=== PATIENT | female | born 1960 | race Caucasian/White ===

== ENCOUNTER 2023-01-17 15:32 | Emergency (ER) | payer SELFPAY ==
--- NOTE | ~2023-01-17 | XR_ITS ---
EXAMINATION: XR hand LT min 3V DATE: 01/17/2023 16:03 INDICATION: Left hand pain. Fall. TECHNIQUE: 3 views of left hand were obtained. COMPARISON: None. FINDINGS: Bone alignment is normal. No fracture. There is mild osteoarthritis of first carpometacarpa l joint and some of the interphalangeal joints. There is moderate osteoarthritis of second, third, an d fourth distal interphalangeal joints and second proximal interphalangeal joint. IMPRESSION: 1. Polyarticular osteoarthritis. Reviewed, dictated and finalized at location E.
--- NOTE | ~2023-01-17 | XR_ITS ---
EXAMINATION: XR wrist LT min 3V DATE: 01/17/2023 16:03 INDICATION: Left wrist pain. Fall. TECHNIQUE: 4 views of left wrist were obtained. COMPARISON: None. FINDINGS: Bone alignment is normal. No fracture. There is mild osteoarthritis of first carpometacarpa l joint and distal radioulnar joint. IMPRESSION: 1. Mild polyarticular osteoarthritis. Reviewed, dictated and finalized at location E.
[2023-01-17 15:41] VITALS: BP 129/56; PULSE 68; RESP 16; TEMP 36.4; O2SAT 100
--- NOTE | 2023-01-17 15:42 | ED.UPPEXIN ---
HPI - Extremity Injury (Upper) General Chief Complaint: Extremity Injury, Upper Stated Complaint: Fall Injury/Left Hand Source: patient and RN notes reviewed History of Present Illness HPI narrative: 62 yo F presents to urgent care with complaints of left hand and wrist pain. Pt states on , she tripped over a broken piece of asphalt at [employer] and fell onto her hands, mainly her left. Pt reports a couple of abrasions to her right hand, right knee, and right toe which are all improving but her left wrist and hand have not improved. 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 Denies any head injury, neck pain, LOC, chest pain, SOB, or vomiting. Pt has taken her Vicodin at home with minimal relief. Related Data Home Medications Medication Instructions Recorded Confirmed amlodipine 5 mg tablet mg 01/17/23 carvedilol 25 mg tablet mg 01/17/23 cyclobenzaprine 10 mg tablet mg 01/17/23 hydrocodone 5 mg-acetaminophen 325 tablet 01/17/23 mg tablet meclizine 25 mg tablet mg 01/17/23 meloxicam 7.5 mg tablet mg 01/17/23 omeprazole 20 mg capsule,delayed mg 01/17/23 release zolpidem 10 mg tablet mg 01/17/23 Allergies Allergy/AdvReac Type Severity Reaction Status Date / Time Penicillins Allergy Rash Verified 01/17/23 15:53 Review of Systems Review of Systems: CONSTITUTIONAL: Denies fever, chills, or sweats. EYES: Denies visual changes, redness, or discharge. ENT: Denies otalgia and sore throat CARDIOVASCULAR: Denies chest pain, palpitations, or edema. RESPIRATORY: Denies cough or dyspnea. GASTROINTESTINAL: Denies abdominal pain, nausea, vomiting, or diarrhea. GENITOURINARY: Denies dysuria or hematuria. SKIN: Denies rash or itching. MUSCULOSKELETAL: Right hand and wrist pain NEUROLOGIC: Denies headache, numbness, or weakness. Pertinent positives per HPI. PMFSH Comments At the time of my signature, I reviewed and agree with the nursing past medical, surgical, social, and family history. There is no relevant family history pertinent to the patient complaint. Exam Narrative: GENERAL: This is a well-nourished, well-developed patient, in no apparent distress. HEAD: normocephalic, atraumatic. EYES: Sclera clear/white. Vision is grossly intact. EARS: External ears normal, auditory canals clear and without drainage. Hearing grossly intact. NOSE: External nose normal with no obvious nasal discharge, nares without redness, no rhinorrhea. THROAT: Mucous membranes moist, posterior pharynx clear. NECK: Neck supple, non-tender without lymphadenopathy, masses or thyromegaly. CARDIOVASCULAR: Regular rate and rhythm without murmurs, gallops, or rubs. RESPIRATORY: Clear to auscultation. Breath sounds equal bilaterally. No wheezes, rales, or rhonchi. GASTROINTESTINAL: Abdomen soft, non-tender, nondistended. Bowel sounds are active. No hepato-splenomegaly, or palpable masses. No guarding. SKIN: warm, intact with no suspicious lesions or rash, good texture and turgor. NEURO: awake, alert, and oriented to person, place and time. There were no obvious focal neurologic abnormalities. EXTREMITIES:Tenderness to left radial and ulnar wrist along with 5th metacarpal of hand. BACK: Nontender without deformity or crepitus. No flank tenderness. Course Course Level of Care: Express Care Visit Vital Signs Vital signs: Vital Signs Temperature 97.5 F L 01/17/23 15:41 Pulse Rate 68 01/17/23 15:41 Respiratory Rate 16 01/17/23 15:41 Blood Pressure 129/56 L 01/17/23 15:41 Pulse Oximetry 100 01/17/23 15:41 Oxygen Delivery Room Air 01/17/23 15:41 Temperature 97.5 F L 01/17/23 15:41 Pulse Rate 68 01/17/23 15:41 Respiratory Rate 16 01/17/23 15:41 Blood Pressure 129/56 L 01/17/23 15:41 Pulse Oximetry 100 01/17/23 15:41 Oxygen Delivery Room Air 01/17/23 15:41 reviewed MDM - Extremity Injury (Upper) MDM Narrative
== END 2023-01-17 16:42 | disposition home or self-care (01) ==
PROVIDERS: Emergency Provider Nurse Practitioner Family; PCP Internal Medicine
DX: S63.502A Unspecified sprain of left wrist, initial encounter (principal); S66.912A Strain of unspecified muscle, fascia and tendon at wrist and hand level, left hand, initial encounter; W18.09XA Striking against other object with subsequent fall, initial encounter; E78.00 Pure hypercholesterolemia, unspecified; I10 Essential (primary) hypertension
CPT/HCPCS: 73110; 73130; 99213; G0463

== ENCOUNTER 2023-01-26 13:03 | Emergency (ER) | payer SELFPAY ==
[2023-01-26 13:53] VITALS: BP 181/90; PULSE 78; RESP 18; TEMP 37; O2SAT 98
--- NOTE | 2023-01-26 15:13 | ED.GENADULT ---
HPI - General Adult General Chief complaint: Extremity Injury, Lower Stated complaint: Laceration to Left Big Toe Source: patient Mode of arrival: ambulatory Limitations: no limitations History of Present Illness HPI narrative: Patient presents for evaluation of a puncture wound to the left great toe. Last night she was at [facility] when a piece of plastic that holds advertising in the stool fell and hit her in the left great toe. She noted some bleeding at that time. Which has considerably improved. She does take meloxicam and aspirin daily. Not anticoagulated. Denies significant pain in the affected digit. Her primary care provider encouraged her to come in for a tetanus shot. She does not feel imaging is needed. She is leaving for a trip to [place] tomorrow. She is not diabetic. She has applied hydrogen peroxide to the afftected area. Related Data Home Medications Medication Instructions Recorded Confirmed carvedilol 25 mg tablet 12.5 mg PO BID 01/17/23 01/26/23 cyclobenzaprine 10 mg tablet 10 mg PO DAILY 01/17/23 01/26/23 meloxicam 7.5 mg tablet 7.5 mg PO DAILY PRN Pain 01/17/23 01/26/23 zolpidem 10 mg tablet 10 mg PO HS 01/17/23 01/26/23 aspirin 81 mg chewable tablet 81 mg PO DAILY 01/26/23 01/26/23 furosemide 40 mg tablet 40 mg PO BID 01/26/23 01/26/23 Allergies Allergy/AdvReac Type Severity Reaction Status Date / Time Penicillins Allergy Rash Verified 01/26/23 14:09 Review of Systems Review of Systems: CONSTITUTIONAL: Denies fever, chills, or sweats. EYES: Denies visual changes, redness, or discharge. ENT: Denies rhinorrhea, congestion, sore throat, or otalgia. CARDIOVASCULAR: Denies chest pain, palpitations, or edema. RESPIRATORY: Denies cough or dyspnea. GASTROINTESTINAL: Denies abdominal pain, nausea, vomiting, or diarrhea. GENITOURINARY: Denies dysuria or hematuria. SKIN: Reports a puncture wound to the left great toe. MUSCULOSKELETAL: Denies back pain, joint pain, or myalgia. NEUROLOGIC: Denies headache, numbness, dizziness, or weakness. PSYCHIATRIC: Denies anxiety or depression. [facility] Past Medical History Medical History Hypertension Obesity Surgical History Surgical History No pertinent past surgical history Family History Family History Mother Family history non-contributory Social History Social History Substance use: never Gender identity (if verbalized by the patient): Female Spiritual care concerns: No Exam Narrative: GENERAL: Well-appearing, well-nourished, and in no acute distress. HEAD: Normocephalic, atraumatic. EYES: PERRLA and EOMI. ENT: Nares clear, no rhinorrhea or epistaxis. Mucous membranes moist. Oropharynx without tonsillar hypertrophy exudate or other lesions. Bilateral TMs pearly darden nonbulging NECK: Supple. No adenopathy or masses. No carotid bruits or JVD CHEST: Clear to auscultation. No respiratory distress. No wheezes rales or rhonchi HEART: Regular rate and rhythm. No murmur heard. Normal peripheral pulses. ABDOMEN: Soft, nontender, nondistended, normal active bowel sounds. EXTREMITIES: Normal range of motion. No edema. SKIN: There is a 2 mm puncture wound to the left great toe with dried sanguinous drainage present. Skin is warm, dry, no rash. NEURO: No focal deficits. Alert and oriented x3. PSYCH: Normal mood and affect. Course Course Emergency Course: This is a 62-year-old female who presented for evaluation of a puncture wound to left great toe. She declined imaging. Tetanus was updated. There is no evidence of infection on exam but she is leaving town for trip to [place] tomorrow. She would like to have antibiotics on hand in the event that she does developed a cellulitis. She has tolerate
[2023-01-26] MEDS: TETANUS,DIPHTHERIA,AC PERTUSSIS ADULT (0.5 ML) BOOSTRIX IM (15:14)
== END 2023-01-26 15:38 | disposition home or self-care (01) ==
PROVIDERS: Emergency Provider Nurse Practitioner; PCP Internal Medicine
DX: S91.132A Puncture wound without foreign body of left great toe without damage to nail, initial encounter (principal); W20.8XXA Other cause of strike by thrown, projected or falling object, initial encounter; I10 Essential (primary) hypertension; E66.9 Obesity, unspecified; Z68.43 Body mass index [BMI] 50.0-59.9, adult; Z23 Encounter for immunization; Z79.82 Long term (current) use of aspirin
CPT/HCPCS: 90471; 90715; 99213; G0463

== ENCOUNTER 2023-05-22 13:28 | Emergency (ER) | payer OTHER, SELFPAY ==
--- NOTE | ~2023-05-22 | XR_ITS ---
EXAMINATION: XR toe 1st LT min 2V DATE: 05/22/2023 14:04 INDICATION: Left great toe pain. Injury. TECHNIQUE: 4 views of left great toe were obtained. COMPARISON: None. FINDINGS: Bone alignment is normal. No fracture. There is mild osteoarthritis of first metatarsophala ngeal joint and first interphalangeal joint. IMPRESSION: 1. Polyarticular osteoarthritis. Reviewed, dictated and finalized at location A. [employer]
--- NOTE | 2023-05-22 13:38 | ED.GENADULT ---
HPI - General Adult General Chief complaint: Extremity Injury, Lower Stated complaint: left foot big toe injury Source: patient, RN notes reviewed and old records reviewed Mode of arrival: ambulatory Limitations: no limitations History of Present Illness HPI narrative: 62[facility] in left great toe this started yesterday, after stubbing toe on shower chair. Patient states has tried ice elevate without relief. MD complaint: Toe pain Onset (ago): day(s) (1) Related Data Home Medications Medication Instructions Recorded Confirmed carvedilol 25 mg tablet 12.5 mg PO BID 01/17/23 01/26/23 cyclobenzaprine 10 mg tablet 10 mg PO DAILY 01/17/23 01/26/23 meloxicam 7.5 mg tablet 7.5 mg PO DAILY PRN Pain 01/17/23 01/26/23 zolpidem 10 mg tablet 10 mg PO HS 01/17/23 01/26/23 aspirin 81 mg chewable tablet 81 mg PO DAILY 01/26/23 01/26/23 furosemide 40 mg tablet 40 mg PO BID 01/26/23 01/26/23 hydrocodone 5 mg-acetaminophen 325 tablet 05/22/23 mg tablet Allergies Allergy/AdvReac Type Severity Reaction Status Date / Time Penicillins Allergy Rash Verified 05/22/23 13:31 Review of Systems Constitutional: Constitutional: Reports no additional constitutional complaints, Denies body ache(s), Denies chills, Denies fatigue, Denies fever(s) and Denies headache(s) Eyes: Eyes: Reports no additional eye complaints and Denies blurry vision ENT: Reports system reviewed and no additional complaints, except as documented, Denies vertigo, Denies dizziness, Denies ear discharge, Denies otalgia, Denies facial pain, Denies headache(s), Denies nasal congestion, Denies nasal discharge, Denies sinus pain, Denies sinus pressure and Denies sore throat Cardiovascular: Cardiovascular: Reports no additional cardiovascular complaints, Denies chest pain, Denies chest pain at rest, Denies rapid heart rate and Denies dyspnea Respiratory: Respiratory: Reports no additional respiratory complaints, Denies chest congestion, Denies cough, Denies pain on inspiration, Denies pain with cough and Denies dyspnea Gastrointestinal: Gastrointestinal: Denies abdominal pain, Denies diarrhea, Denies nausea and Denies vomiting Musculoskeletal: Comments: left great toe pain Integumentary/Breasts: Skin/Breast: Denies rash Neurologic: Reports system reviewed and no additional complaints, except as documented, Denies vertigo, Denies dizziness and Denies headache(s) Endocrine: Endocrine: Denies fatigue PMFSH Past Medical History Medical History Hypertension Obesity Surgical History Surgical History No pertinent past surgical history Family History Family History Mother Family history non-contributory Social History Social History Substance use: never Gender identity (if verbalized by the patient): Female Spiritual care concerns: No Comments At the time of my signature, I reviewed and agree with the nursing past medical, surgical, social, and family history. There is no relevant family history pertinent to the patient complaint. Exam Const: General: cooperative, healthy appearing, no acute distress and well nourished Nutritional Appearance: well nourished Orientation/consciousness: patient oriented x3 Limitations: no limitations HENMT: Head: normal to inspection and normocephalic Ears: external ears normal, TM's normal bilaterally, mastoids normal and Abnormal EAC present Face/Nose/Sinus: normal facial exam Face and sinus: normal facial exam Mouth: Yes Normal oral and palatal mucosa present, Yes oropharynx normal and Yes moist mucous membranes Throat: tonsils normal, uvula midline and no uvular edema Eyes: General: appearance normal, both eyes and all related structures Scle
[2023-05-22 13:43] VITALS: BP 119/67; PULSE 73; RESP 16; TEMP 36.7; O2SAT 96
== END 2023-05-22 14:30 | disposition home or self-care (01) ==
PROVIDERS: Emergency Provider Registered Nurse; PCP Internal Medicine
DX: S90.112A Contusion of left great toe without damage to nail, initial encounter (principal); I10 Essential (primary) hypertension; Z79.891 Long term (current) use of opiate analgesic; W22.8XXA Striking against or struck by other objects, initial encounter
CPT/HCPCS: 73660; 99213; G0463